=== PATIENT | male | born 1970 | race Two or more races ===

== ENCOUNTER 2017-11-22 02:32 | Emergency (ER) | payer MEDICAID ==
[~2017-11-22] VITALS: Ht 167.6 cm; Wt 86.2 kg
[2017-11-22 02:44] VITALS: BP 130/89
[2017-11-22] MEDS ORDERED: TETANUS-DIPTH-ACEL PERTUSSIS 0.5ML SYRG IM ONE (04:00)
[2017-11-22] MEDS ORDERED: cefTRIAXone SOD 1,000 MG VL IM ONE (04:00)
== END 2017-11-22 07:30 | disposition home or self-care (01) ==
LOC: ER 02:35
DX: S01.21XA Laceration without foreign body of nose, initial encounter (principal); R04.0 Epistaxis; W19.XXXA Unspecified fall, initial encounter; Y93.89 Activity, other specified; Y92.89 Other specified places as the place of occurrence of the external cause; Y99.8 Other external cause status
CPT/HCPCS: 12011; 70486; 90471; 90715; 96372; 99284; J0696